=== PATIENT | male | born 1990 | race African-American/Black ===

== ENCOUNTER 2016-09-28 17:21 | Emergency (ER) | payer SELFPAY ==
[~2016-09-28] VITALS: Ht 182.9 cm; Wt 120.2 kg
[~2016-09-28 17:21] MED LIST: IBUP200T43 PO
[2016-09-28] MEDS ORDERED: IV NORMAL SALINE 1000ML BAG 1,000 ML IV SCH (18:33)
[2016-09-28] MEDS ORDERED: LIDO:MAALOX:DONNATAL 1:1:1 15 ML SINGLE DOSE SWSW ONE (18:45)
[2016-09-28] MEDS ORDERED: ONDANSETRON PF 4 MG/2 ML VIAL. IV ONE (18:45)
[2016-09-28] MEDS ORDERED: FAMOTIDINE 20 MG/2 ML VIAL IVP ONE (18:45)
[2016-09-28 19:00] VITALS: BP 116/80
[2016-09-28 19:02] LABS: BASO # 0.1 x10^3/uL (0.0-0.2); BASO % 1 % (0-3); EOS % 1 % (0-3); HEMATOCRIT 43.6 % (39.0-53.0); HEMOGLOBIN 14.4 g/dL (13.0-17.5); LYMPH # 2.4 x10^3/uL (1.0-4.8); LYMPH % 22 % (24-48); MEAN CORPUSCULAR HEMOGLOBIN 31 pg (25-35); MEAN CORPUSCULAR HGB CONC 33 g/dL (31-37); MEAN CORPUSCULAR VOLUME 94 fL (79-100); MONO % 9 % (0-9); NEUT % 67 % (31-73); PLATELET COUNT 183 x10^3/uL (140-400); RED BLOOD COUNT 4.66 x10^6/uL (4.30-5.70); RED CELL DISTRIBUTION WIDTH 13.1 % (11.5-14.5); WHITE BLOOD COUNT 11.3 x10^3/uL (4.0-11.0)
[2016-09-28 19:14] LABS: CREATININE 1.1 mg/dL (0.7-1.3); GFR 96.4; POTASSIUM 3.9 mmol/L (3.5-5.1)
[2016-09-28 19:22] LABS: ALBUMIN 3.5 g/dL (3.4-5.0); ALBUMIN/GLOBULIN RATIO 1.1 (1.0-1.7); TOTAL BILIRUBIN 0.3 mg/dL (0.2-1.0); TOTAL PROTEIN 6.6 g/dL (6.4-8.2)
[2016-09-28] MEDS ORDERED: HYDR-971 PO (19:58)
[2016-09-28] MEDS ORDERED: OMEP20TA PO (19:58)
--- NOTE | 2016-09-28 19:58 | PHYS DOC ---
Past Medical History Past Medical History: Anxiety Past Surgical History: No Surgical History Additional Information: 0.25 PPD Alcohol Use: Occasionally Drug Use: Marijuana Adult General Chief Complaint Chief Complaint: ALLERGIC REACTION HPI HPI Patient is a 26 year old male who presents with abdominal pain. Patient reports last week he was started on meds for dental pain: indomethacin, penicillin, and tramadol. Since yesterday he has been having "squeezing" epigastric pain that is accompanied by nausea. He also vomited once this morning. No clear mitigating factors. In addition, he says that he has only taken the tramadol a few times because it makes him weak and drowsy. Review of Systems Review of Systems Constitutional: Denies fever or chills HENT: Denies nasal congestion or sore throat. Dental pain controlled Respiratory: Denies cough or shortness of breath Cardiovascular: Denies chest pain GI: Epigastric abdominal pain, nausea, vomiting. Denies bloody stools/emesis or diarrhea : Denies dysuria or hematuria Musculoskeletal: Denies back pain or joint pain Integument: Denies rash or skin lesions Neurologic: Denies headache, focal weakness or sensory changes Current Medications Current Medications Current Medications Medications (Trade) Dose Ordered Sig/Noel Start Time Stop Time Status Last Admin Dose Admin Famotidine (Pepcid) 20 mg 1X ONCE 09/28/16 18:45 09/28/16 18:46 DC 09/28/16 18:49 20 MG Multi-Ingredient Mouthwash/Gargle 15 ml 15 ml 1X ONCE 09/28/16 18:45 09/28/16 18:46 DC 09/28/16 18:48 15 ML Ondansetron HCl (Zofran) 4 mg 1X ONCE 09/28/16 18:45 09/28/16 18:46 DC 09/28/16 18:48 4 MG Sodium Chloride (Iv Sodium Chloride 0.9% 1000ml Bag) 1,000 ml @ 1,000 mls/hr Q1H 09/28/16 18:33 09/28/16 19:32 DC 09/28/16 18:49 1,000 MLS/HR Allergies Allergies Allergies Coded Allergies Type Severity Reaction Last Updated Verified No Known Drug Allergies 02/24/16 No Physical Exam Physical Exam Constitutional: Well developed, well nourished, no acute distress, non-toxic appearance HENT: Normocephalic, atraumatic, bilateral external ears normal; tooth #1 eroded down to gumline Neck: Normal range of motion, no stridor Cardiovascular: Heart rate normal, regular rhythm, no murmur Lungs & Thorax: Bilateral breath sounds clear to auscultation Abdomen: Bowel sounds normal, soft, non-distended, epigastric TTP without guarding or rebound Skin: Warm, dry, no erythema, no rash Extremities: No obvious deformity, no edema Neurologic: Alert and oriented X 3, no gross deficits noted Current Patient Data Vital Signs Vital Signs Date Time Temp Pulse Resp B/P Pulse Ox O2 Delivery O2 Flow Rate FiO2 09/28/16 19:00 80 16 116/80 99 Room Air 09/28/16 17:31 99.5 99.5 Lab Values Laboratory Tests Test 09/28/16 18:55 White Blood Count 11.3x10^3/uL (4.0-11.0) H Red Blood Count 4.66x10^6/uL (4.30-5.70) Hemoglobin 14.4g/dL (13.0-17.5) Hematocrit 43.6% (39.0-53.0) Mean Corpuscular Volume 94fL (79-100) Mean Corpuscular Hemoglobin 31pg (25-35) Mean Corpuscular Hemoglobin Concent 33g/dL (31-37) Red Cell Distribution Width 13.1% (11.5-14.5) Platelet Count 183x10^3/uL (140-400) Neutrophils (%) (Auto) 67% (31-73) Lymphocytes (%) (Auto) 22% (24-48) L Monocytes (%) (Auto) 9% (0-9) Eosinophils (%) (Auto) 1% (0-3) Basophils (%) (Auto) 1% (0-3) Neutrophils # (Auto) 7.6x10^3uL (1.8-7.7) Lymphocytes # (Auto) 2.4x10^3/uL (1.0-4.8) Monocytes # (Auto) 1.0x10^3/uL (0.0-1.1) Eosinophils # (Auto) 0.2x10^3/uL (0.0-0.7) Basophils # (Auto) 0.1x10^3/uL (0.0-0.2) Sodium Level 143mmol/L (136-145) Potassium Level 3.9mmol/L (3.5-5.1) Chloride Level 105mmol/L (98-107) Carbon Dioxide Level 29mmol/L (21-32) Anion Gap 9 (6-14) Blood Urea Nitrogen 12mg/dL (8-26) Creatinine 1.1mg/dL (0.7-1.3) Estimated GFR (Cockcroft-Gault) 96.4 BUN/Creatinine Ratio 11 (6-20) Glucose Level 93mg/dL (70-99) Calcium Level 9.0mg/dL (8.5-10.1) Total Bilirubin 0.3mg/dL (0.2-1.0) Aspartate Amino Transferase (AST) 16U/L (15-37) Alanine Aminotransferase (ALT) 42U/L (16-63) Alkaline Phosphatase 79U/L (46-116) Total Protein 6.6g/dL (6.4-8.2) Albumin 3.5g/dL (3.4-5.0) Albumin/Globulin Ratio 1.1 (1.0-1.7) Lipase 108U/L (73-393) Laboratory Tests 09/28/16 18:55 Laboratory Tests 09/28/16 18:55 EKG EKG [] Radiology/Procedures Radiology/Procedures [] Course & Med Decision Making Course & Med Decision Making Pertinent Labs and Imaging studies reviewed. (See chart for details) Patient is 18-year-old male who presents with abdominal pain. Appears to be NSAID-induced gastritis from indomethacin use. Will check labs to evaluate. IV fluids, Pepcid, GI cocktail, nausea meds ordered for symptom relief. Blood work unremarkable. Discussed results with patient, who is feeling much better at this time. Will discharge home with prescription for omeprazole, alternate pain medication, instructions for follow-up, return precautions. Dragon Disclaimer Dragon Disclaimer This electronic medical record was generated, in whole or in part, using a voice recognition dictation system. Departure Departure Impression: Primary Impression: NSAID induced gastritis Disposition: HOME, SELF-CARE Condition: IMPROVED Referrals: NO PCP (PCP) Patient Instructions: Gastritis, Adult Additional Instructions: Thank you for allowing us to provide care today in the Emergency Department. Stop taking any NSAIDs for the near future. This includes indomethacin, aspirin , ibuprofen, and naproxen. It is ok to take acetaminophen (Tylenol). Take the provided medication as directed. Use caution when taking the pain medication as it can make you drowsy. Schedule a follow up appointment with your primary care doctor. Also keep your scheduled appointment with your dentist. Return promptly to the Emergency Department if you develop any new or concerning symptoms. Scripts Omeprazole 20 Mg Tablet.dr20 Mg PO DAILY #30 TAB Prov:PRISCILLA CHURCHILL MD 09/28/16 Hydrocodone/Apap 5-325 (Bertha 5-325 Tablet)1 Each Tablet1 Tab PO PRN Q6HRS PRN PAIN #20 TAB Prov:PRISCILLA CHURCHILL MD 09/28/16 PRISCILLA CHURCHILL MD Sep 28, 2016 19:58
== END 2016-09-28 20:16 | disposition home or self-care (01) ==
LOC: ER 17:21
DX: K29.60 Other gastritis without bleeding (principal); F12.10 Cannabis abuse, uncomplicated; F17.200 Nicotine dependence, unspecified, uncomplicated
CPT/HCPCS: 36415; 80053; 83690; 85027; 96361; 96374; 96375; 99284; J2405; J7030; S0028

== ENCOUNTER 2016-10-28 08:34 | Emergency (ER) | payer SELFPAY ==
[~2016-10-28] VITALS: Ht 182.9 cm; Wt 117.9 kg
[~2016-10-28 08:34] MED LIST changes: +HYDR-971 PO; +OMEP20TA PO
[2016-10-28] MEDS ORDERED: ALPRAZolam 0.5 MG TABLET PO ONE (09:00)
--- NOTE | 2016-10-28 09:23 | EKG ---
[facility] [address] [place] [address] Test Date: 2016-10-28 Test Time: 08:56:31 Pat Name: DALJIT MARTINEZ Department: Room: Gender: M Media Marketing Manager: : 1990 Requested By: MIKALA HONEYCUTT Order Number: [id number] Reading MD: Bel Arndt Measurements Intervals [place] Rate: 80 P: 0 OK: 158 QRS: 43 QRSD: 94 T: 18 QT: 338 QTc: 393 Interpretive Statements SINUS RHYTHM NORMAL EKG Electronically Signed On 10-31-2016 17:37:45 CDT by Bel Arndt
[2016-10-28 09:45] VITALS: BP 117/57
[2016-10-28] MEDS ORDERED: ALPR0.5T PO (09:50)
--- NOTE | 2016-10-28 09:50 | PHYS DOC ---
Past Medical History Past Medical History: Anxiety Past Surgical History: No Surgical History Alcohol Use: Occasionally Additional Information: Pt states, "I used to drink heavy everyday and then I got it down to just on weekends, and then I completely stopped two weeks ago." Drug Use: Marijuana Social History Narrative: Denies marijana use x 2 weeks Adult General Chief Complaint Chief Complaint: ANXIETY/PANIC ATTACK HPI HPI Patient is a 26 year old male with history of anxiety who presents today complaining of anxiety. Patient states he has had a lot of stress recently. He states he has a lot of bills which need to be pain but he doesn't have the money right now to pay them, he states most of his family members are depending on him. Patient states this situations has made him very anxious. Patient denies any chest pain or shortness of breath. He states he would like a note for work as well as some help for anxiety. Patient denies any suicidal or homicidal ideation. Patient denies any alcohol or drug abuse. He states he stopped using alcohol 2 weeks ago. He states he stopped smoking 2 weeks ago but smoked one cigarette today due to anxiety. Review of Systems Review of Systems Constitutional: Denies fever or chills [] Eyes: Denies change in visual acuity, redness, or eye pain [] HENT: Denies nasal congestion or sore throat [] Respiratory: Denies cough or shortness of breath [] Cardiovascular: No additional information not addressed in HPI [] GI: Denies abdominal pain, nausea, vomiting, bloody stools or diarrhea [] : Denies dysuria or hematuria [] Musculoskeletal: Denies back pain or joint pain [] Integument: Denies rash or skin lesions [] Neurologic: Denies headache, focal weakness or sensory changes [] Endocrine: Denies polyuria or polydipsia [] Psych: anxiety Current Medications Current Medications Current Medications Medications (Trade) Dose Ordered Sig/Noel Start Time Stop Time Status Last Admin Dose Admin Alprazolam (Xanax) 0.5 mg 1X ONCE 10/28/16 09:00 10/28/16 09:27 DC 10/28/16 09:18 0.5 MG Allergies Allergies Allergies Coded Allergies Type Severity Reaction Last Updated Verified No Known Drug Allergies 10/28/16 No Physical Exam Physical Exam Constitutional: Well developed, well nourished, no acute distress, non-toxic appearance. [] HENT: Normocephalic, atraumatic, bilateral external ears normal, oropharynx moist, no oral exudates, nose normal. [] Eyes: PERRLA, EOMI, conjunctiva normal, no discharge. [] Neck: Normal range of motion, no tenderness, supple, no stridor. [] Cardiovascular:Heart rate regular rhythm, no murmur [] Lungs & Thorax: Bilateral breath sounds clear to auscultation [] Abdomen: Bowel sounds normal, soft, no tenderness, no masses, no pulsatile masses. [] Skin: Warm, dry, no erythema, no rash. [] Back: No tenderness, no CVA tenderness. [] Extremities: No tenderness, no cyanosis, no clubbing, ROM intact, no edema. [] Neurologic: Alert and oriented X 3, normal motor function, normal sensory function, no focal deficits noted. [] Psychologic: Affect normal, judgement normal, mood normal. [] Current Patient Data Vital Signs Vital Signs Date Time Temp Pulse Resp B/P (MAP) Pulse Ox O2 Delivery O2 Flow Rate FiO2 10/28/16 08:46 98.6 90 20 137/66 (89) 100 Room Air 98.6 EKG EKG [] Radiology/Procedures Radiology/Procedures [] Course & Med Decision Making Course & Med Decision Making Pertinent Labs and Imaging studies reviewed. (See chart for details) This is a patient with history of anxiety who presents today with an anxiety attack. He is not suicidal homicidal or homicidal. He is requesting something to help him with anxiety as well as a note for work. He was given Xanax in the ED. He is in no distress. His vitals are stable. Advised against smoking addiction 08:[address] Webb sinus rhythm, HR 80 QRS interval 94 no STEMI We recommended following up with [facility]. Gave him a prescription for Xanax . Dragon Disclaimer Dragon Disclaimer This electronic medical record was generated, in whole or in part, using a voice recognition dictation system. Departure Departure Impression: Primary Impression: Anxiety Disposition: HOME, SELF-CARE Condition: STABLE Referrals: NO PCP (PCP) Follow up with [facility] [phone] and a primarycare doctor Patient Instructions: Anxiety and Panic Attacks Additional Instructions: You were seen for anxiety. We highly recommend you establish care with a primary care doctor as well as [facility]. Come back to the Ed if symptoms worsen Scripts Alprazolam (XANAX) 0.5 Mg Tablet 1 TAB PO TID, #12 TAB Prov: MIKALA HONEYCUTT APRN 10/28/16 MIKALA HONEYCUTT APRN October 28, 2016 09:50
== END 2016-10-28 10:10 | disposition home or self-care (01) ==
LOC: ER 08:34
DX: F41.9 Anxiety disorder, unspecified (principal); F17.200 Nicotine dependence, unspecified, uncomplicated; F12.10 Cannabis abuse, uncomplicated
CPT/HCPCS: 93005; 99283-25

== ENCOUNTER 2017-12-16 18:52 | Emergency (ER) | payer SELFPAY | END 2017-12-16 20:30 | disposition home or self-care (01) | LOC: ER 18:52 | DX: F41.9 Anxiety disorder, unspecified (principal); F32.9 Major depressive disorder, single episode, unspecified | CPT/HCPCS: 93005; 99283; 99284 ==

== ENCOUNTER 2019-04-01 14:58 | Emergency (ER) | payer OTHER ==
[~2019-04-01] VITALS: Ht 180.3 cm; Wt 129.3 kg
[~2019-04-01 14:58] MED LIST changes: +ALPR0.5T PO; +HYDR-3164 PO; -HYDR-971 PO; -IBUP200T43 PO; +IBUP200T44 PO; -OMEP20TA PO; +OMEP20TA8 PO
[2019-04-01 15:25] VITALS: BP 177/85
[2019-04-01] MEDS ORDERED: HYDROcodone/APAP 5/325MG 1 TAB TABLET PO ONE (15:45)
--- NOTE | 2019-04-01 15:53 | PHYS DOC ---
Past Medical History Past Medical History: Anxiety Past Surgical History: No Surgical History Alcohol Use: Occasionally Drug Use: Marijuana Adult General Chief Complaint Chief Complaint: SORE THROAT HPI HPI Patient is a 29 year old smoker male patient who presents with complaining of sore throat and sinus infection. Patient states he had facial and sinus pain thought to 3 days ago with nonproductive cough and yesterday had jaw and dental pain and today had sore throat. Patient states he had fever for the first 2 days but doesn't know what was his temperature that was checked by his . Patient rated his pain 8/10 and denies sick contact, shortness of breath, chest pain, abdominal pain, nausea and vomiting, diarrhea and constipation, urinary symptom. Review of Systems Review of Systems Constitutional: Reports fever Eyes: Denies change in visual acuity, redness, or eye pain [] HENT: Reports nasal congestion and sore throat Respiratory: Denies shortness of breath, reports cough [] Cardiovascular: No additional information not addressed in HPI [] GI: Denies abdominal pain, nausea, vomiting, bloody stools or diarrhea [] : Denies dysuria or hematuria [] Musculoskeletal: Denies back pain or joint pain [] Integument: Denies rash or skin lesions [] Neurologic: Denies headache, focal weakness or sensory changes [] Endocrine: Denies polyuria or polydipsia [] All other systems were reviewed and found to be within normal limits, except as documented in this note. Current Medications Current Medications Current Medications Medications (Trade) Dose Ordered Sig/Noel Start Time Stop Time Status Last Admin Dose Admin Acetaminophen/ Hydrocodone Bitart (Lortab 5/325) 1 tab 1X ONCE 04/01/19 15:45 04/01/19 15:46 DC 04/01/19 15:46 1 TAB Allergies Allergies Allergies Coded Allergies Type Severity Reaction Last Updated Verified No Known Drug Allergies 10/28/16 No Physical Exam Physical Exam Constitutional: Well developed, well nourished, mild distress, non-toxic appearance, afebrile. [] HENT: Normocephalic, atraumatic nasal congestion, moist oral mucosa, no dental injury or tenderness, bilateral tonsils enlarged with exudate, bilateral maxillary sinus tenderness. Eyes: PERRLA, EOMI, conjunctiva normal, no discharge. [] Neck: Normal range of motion, no tenderness, supple, no stridor. [] Cardiovascular:Heart rate regular rhythm, no murmur [] Lungs & Thorax: Bilateral breath sounds clear to auscultation [] Extremities: No tenderness, no cyanosis, no clubbing, ROM intact, no edema. [] Neurologic: Alert and oriented X 3, no focal deficits noted. [] Psychologic: Affect normal, judgement normal, mood normal. [] Current Patient Data Vital Signs Vital Signs Date Time Temp Pulse Resp B/P (MAP) Pulse Ox O2 Delivery O2 Flow Rate FiO2 04/01/19 15:46 14 98 Room Air 04/01/19 15:25 99.1 97 177/85 (115) 99.1 EKG EKG [] Radiology/Procedures Radiology/Procedures [] Course & Med Decision Making Course & Med Decision Making Pertinent Labs reviewed. (See chart for details) I've spoken with the patient and/or caregivers. I've explained the patient's condition, diagnosis and treatment plan based on information available to me at this time. I've answered the patient's and/or caregivers questions and addressed any concerns. The patient and/or caregivers have a good understanding the patient's diagnosis, condition and treatment plan as can be expected at this point. Vital signs have been stabilized. The patient's condition is stable for discharge from the emergency department. The patient will pursue further outpatient evaluation with her primary care provider or other designated consulting physician as outlined in the discharge i nstructions. Patient and/or caregivers are agreeable to this plan of care and follow-up instructions have been explained in detail. The patient and/or caregivers have received these instructions in written format and expressed understanding of these discharge instructions. The patient and her caregivers are aware that if any significant change in condition or worsening of symptoms should prompt him to immediately return to this of the closest emergency department. If an emergent department is not readily available I would encourage him to call 911. Esperanza Disclaimer Dragon Disclaimer This electronic medical record was generated, in whole or in part, using a voice recognition dictation system. Departure Departure Impression: Primary Impression: URI (upper respiratory infection) Additional Impression: Acute sinusitis Disposition: HOME, SELF-CARE (at 1624) Condition: IMPROVED Referrals: NO PCP (PCP) Patient Instructions: Sinusitis, Upper Respiratory Infection, Adult Additional Instructions: Drink plenty of liquids Follow-up with your primary care physician in 3-5 days Return to ER if not getting better Scripts Benzonatate (TESSALON PERLE) 100 Mg Capsule 1 CAP PO TID for cough, #21 CAP Prov: MARIA ALEJANDRA LOPEZ MD 04/01/19 Hydrocodone/Apap 5-325 (NORCO 5-325 TABLET) 1 Each Tablet 1 TAB PO PRN Q6HRS PRN for PAIN, #10 TAB 0 Refills Prov: MARIA ALEJANDRA LOPEZ MD 04/01/19 Amoxicillin/Potassium Clav (AUGMENTIN 875-125 TABLET) 1 Each Tablet 1 TAB PO Q12HR, #20 TAB Prov: MARIA ALEJANDRA LOPEZ MD 04/01/19 Oxymetazoline Hcl (AFRIN) 30 Ml [place] 2 SPR NS QID for nasal congestion, #1 SPRAY Prov: MARIA ALEJANDRA LOPEZ MD 04/01/19 Problem Qualifiers Primary Impression: URI (upper respiratory infection) URI type: unspecified URI Qualified Codes: J06.9 - Acute upper respiratory infection, unspecified Additional Impression: Acute sinusitis Sinusitis location: maxillary Recurrence: not specified as recurrent Qualified Codes: J01.00 - Acute maxillary sinusitis, unspecified MARIA ALEJANDRA LOPEZ MD Apr 01, 2019 15:53
[2019-04-01] MEDS ORDERED: OXYM30SP NS (16:28)
[2019-04-01] MEDS ORDERED: AMOX1TAB61 PO (16:28)
[2019-04-01] MEDS ORDERED: BENZ100C PO (16:28)
[2019-04-01] MEDS ORDERED: HYDR-3164 PO (16:28)
== END 2019-04-01 16:45 | disposition home or self-care (01) ==
LOC: ER 14:58
DX: J01.00 Acute maxillary sinusitis, unspecified (principal); J06.9 Acute upper respiratory infection, unspecified; F41.9 Anxiety disorder, unspecified; F17.200 Nicotine dependence, unspecified, uncomplicated
CPT/HCPCS: 87070; 87880; 99284

== ENCOUNTER 2020-01-03 21:19 | Emergency (ER) | payer SELFPAY ==
[~2020-01-03] VITALS: Ht 182.9 cm; Wt 120.4 kg
[~2020-01-03 21:19] MED LIST changes: +AMOX1TAB61 PO; +BENZ100C PO; +OXYM30SP25 NS
[2020-01-04] MEDS ORDERED: ONDANSETRON PF 4 MG/2 ML VIAL. IVP ONE
[2020-01-04] MEDS ORDERED: IV NORMAL SALINE 1000ML BAG 1,000 ML IV ONE (00:15)
[2020-01-04 00:26] LABS: BASO # 0.1 x10^3/uL (0.0-0.2); BASO % 1 % (0-3); EOS # 0.2 x10^3/uL (0.0-0.7); EOS % 2 % (0-3); HEMATOCRIT 40.5 % (39.0-53.0); LYMPH # 3.9 x10^3/uL (1.0-4.8); LYMPH % 33 % (24-48); MEAN CORPUSCULAR HEMOGLOBIN 32 pg (25-35); MEAN CORPUSCULAR HGB CONC 35 g/dL (31-37); MEAN CORPUSCULAR VOLUME 93 fL (79-100); MONO # 0.8 x10^3/uL (0.0-1.1); MONO % 7 % (0-9); NEUT # 6.7 x10^3/uL (1.8-7.7); NEUT % 57 % (31-73); PLATELET COUNT 261 x10^3/uL (140-400); RED BLOOD COUNT 4.37 x10^6/uL (4.30-5.70); RED CELL DISTRIBUTION WIDTH 13.2 % (11.5-14.5); WHITE BLOOD COUNT 11.8 x10^3/uL (4.0-11.0)
[2020-01-04 00:37] LABS: CALCIUM 8.5 mg/dL (8.5-10.1); GFR 105.5
[2020-01-04 00:45] LABS: ALBUMIN 3.5 g/dL (3.4-5.0); ALBUMIN/GLOBULIN RATIO 1.1 (1.0-1.7); TOTAL BILIRUBIN 0.3 mg/dL (0.2-1.0); TOTAL PROTEIN 6.6 g/dL (6.4-8.2)
--- NOTE | 2020-01-04 01:26 | PHYS DOC ---
Past Medical History Past Medical History: Anxiety Past Surgical History: No Surgical History Smoking Status: Current Every Day Smoker Alcohol Use: Occasionally Drug Use: Marijuana General Adult EDM: Chief Complaint: GI PROBLEM HPI: HPI: 29-year-old male presents with a chief complaint of left upper quadrant abdominal pain associated with nausea vomiting and diarrhea. Patient states Review of Systems: Review of Systems: Constitutional: Denies fever or chills. [] Eyes: Denies change in visual acuity. [] HENT: Denies nasal congestion or sore throat. [] Respiratory: Denies cough or shortness of breath. [] Cardiovascular: Denies chest pain or edema. [] GI: Denies abdominal pain, nausea, vomiting, bloody stools or diarrhea. [] : Denies dysuria. [] Musculoskeletal: Denies back pain or joint pain. [] Integument: Denies rash. [] Neurologic: Denies headache, focal weakness or sensory changes. [] Endocrine: Denies polyuria or polydipsia. [] Lymphatic: Denies swollen glands. [] Psychiatric: Denies depression or anxiety. [] Heart Score: Risk Factors: Risk Factors: DM, Current or recent (<one month) smoker, HTN, HLP, family h istory of CAD, obesity. Risk Scores: Score 0 - 3: 2.5% MACE over next 6 weeks - Discharge Home Score 4 - 6: 20.3% MACE over next 6 weeks - Admit for Clinical Observation Score 7 - 10: 72.7% MACE over next 6 weeks - Early Invasive Strategies Current Medications: Current Medications Medications (Trade) Dose Ordered Sig/Noel Start Time Stop Time Status Last Admin Dose Admin Ondansetron HCl (Zofran) 4 mg 1X ONCE 01/04/20 00:00 01/04/20 00:01 DC 01/04/20 00:12 4 MG Sodium Chloride 1,000 ml @ 1,000 mls/hr 1X ONCE 01/04/20 00:15 01/04/20 01:14 DC 01/04/20 00:13 1,000 MLS/HR Allergies: Allergies: Allergies Coded Allergies Type Severity Reaction Last Updated Verified No Known Drug Allergies 10/28/16 No Physical Exam: PE: Constitutional: Well developed, well nourished, no acute distress, non-toxic appearance. [] HENT: Normocephalic, atraumatic, bilateral external ears normal, oropharynx moist, no oral exudates, nose normal. [] Eyes: PERRLA, EOMI, conjunctiva normal, no discharge. [] Neck: Normal range of motion, no tenderness, supple, no stridor. [] Cardiovascular:Heart rate regular rhythm, no murmur [] Lungs & Thorax: Bilateral breath sounds clear to auscultation [] Abdomen: Patient's abdomen is soft tenderness with location primarily in the le ft upper quadrant. Patient has no pain to palpation right upper quadrant and right lower quadrant Skin: Warm, dry, no erythema, no rash. [] Back: No tenderness, no CVA tenderness. [] Extremities: No tenderness, no cyanosis, no clubbing, ROM intact, no edema. [] Neurologic: Alert and oriented X 3, normal motor function, normal sensory function, no focal deficits noted. [] Psychologic: Affect normal, judgement normal, mood normal. [] Current Patient Data: Labs: Laboratory Tests Test 01/04/20 00:09 White Blood Count 11.8 x10^3/uL (4.0-11.0) H Red Blood Count 4.37 x10^6/uL (4.30-5.70) Hemoglobin 14.0 g/dL (13.0-17.5) Hematocrit 40.5 % (39.0-53.0) Mean Corpuscular Volume 93 fL (79-100) Mean Corpuscular Hemoglobin 32 pg (25-35) Mean Corpuscular Hemoglobin Concent 35 g/dL (31-37) Red Cell Distribution Width 13.2 % (11.5-14.5) Platelet Count 261 x10^3/uL (140-400) Neutrophils (%) (Auto) 57 % (31-73) Lymphocytes (%) (Auto) 33 % (24-48) Monocytes (%) (Auto) 7 % (0-9) Eosinophils (%) (Auto) 2 % (0-3) Basophils (%) (Auto) 1 % (0-3) Neutrophils # (Auto) 6.7 x10^3/uL (1.8-7.7) Lymphocytes # (Auto) 3.9 x10^3/uL (1.0-4.8) Monocytes # (Auto) 0.8 x10^3/uL (0.0-1.1) Eosinophils # (Auto) 0.2 x10^3/uL (0.0-0.7) Basophils # (Auto) 0.1 x10^3/uL (0.0-0.2) Sodium Level 140 mmol/L (136-145) Potassium Level 4.0 mmol/L (3.5-5.1) Chloride Level 106 mmol/L (98-107) Carbon Dioxide Level 26 mmol/L (21-32) Anion Gap 8 (6-14) Blood Urea Nitrogen 9 mg/dL (8-26) Creatinine 1.0 mg/dL (0.7-1.3) Estimated GFR (Cockcroft-Gault) 105.5 BUN/Creatinine Ratio 9 (6-20) Glucose Level 94 mg/dL (70-99) Calcium Level 8.5 mg/dL (8.5-10.1) Total Bilirubin 0.3 mg/dL (0.2-1.0) Aspartate Amino Transferase (AST) 16 U/L (15-37) Alanine Aminotransferase (ALT) 35 U/L (16-63) Alkaline Phosphatase 94 U/L (46-116) Total Protein 6.6 g/dL (6.4-8.2) Albumin 3.5 g/dL (3.4-5.0) Albumin/Globulin Ratio 1.1 (1.0-1.7) Lipase 101 U/L (73-393) Laboratory Tests 01/04/20 00:09 Laboratory Tests 01/04/20 00:09 Vital Signs: Vital Signs Date Time Temp Pulse Resp B/P (MAP) Pulse Ox O2 Delivery O2 Flow Rate FiO2 01/03/20 22:08 98.5 72 18 116/59 (78) 98 Room Air 98.5 EKG: EKG: [] Radiology/Procedures: Radiology/Procedures: [] Course & Med Decision Making: Course & Med Decision Making Pertinent Labs and Imaging studies reviewed. (See chart for details) [] Was evaluated for chief complaint. Work-up consisted of laboratory analysis. Results reviewed and discussed with patient suspect viral etiology. Patient treated with Toradol and Zofran. Patient tolerated p.o. fluids. Patient will be discharged home with Zofran. Esperanza Disclaimer: Esperanza Disclaimer: This electronic medical record was generated, in whole or in part, using a voice recognition dictation system. Departure Departure Impression: Primary Impression: Gastroenteritis Condition: STABLE Referrals: NO PCP (PCP) Patient Instructions: Viral Gastroenteritis Scripts Ondansetron Hcl (ZOFRAN) 4 Mg Tablet 1 TAB PO Q6HRS, #20 TAB Prov: MICHEAL SALAZAR DO 01/04/20 Justicifation of Admission Dx: Justifications for Admission: Justification of Admission Dx: N/A MICHEAL SALAZAR DO Jan 04, 2020 01:26
[2020-01-04] MEDS ORDERED: ONDA4TAB7 PO (02:12)
[2020-01-04 02:34] VITALS: BP 120/75
== END 2020-01-04 02:38 | disposition home or self-care (01) ==
LOC: ER 21:19
DX: K52.9 Noninfective gastroenteritis and colitis, unspecified (principal); F17.200 Nicotine dependence, unspecified, uncomplicated
CPT/HCPCS: 36415; 80053; 83690; 85025; 96361; 96374; 99285; J2405; J7030

== ENCOUNTER 2020-01-09 12:24 | Emergency (ER) | payer SELFPAY ==
[~2020-01-09] VITALS: Ht 182.9 cm; Wt 122.0 kg
[~2020-01-09 12:24] MED LIST changes: +ONDA4TAB7 PO
[2020-01-09] MEDS ORDERED: IV NORMAL SALINE 1000ML BAG 1,000 ML IV SCH (12:47)
--- NOTE | 2020-01-09 12:47 | PHYS DOC ---
Past Medical History Past Medical History: Anxiety Past Surgical History: No Surgical History Smoking Status: Current Every Day Smoker Alcohol Use: Occasionally Drug Use: Marijuana General Adult EDM: Chief Complaint: ABDOMINAL PAIN HPI: HPI: Patient is a 29 year old [male] who presents with [1 week history of abdominal pain. Patient recently had diarrhea which is gotten better but now has nausea vomiting. Patient reports any fever a week ago at job but has not had any fever since. Patient says his has had similar symptoms.] Review of Systems: Review of Systems: Constitutional: Fever 6 days ago none since Eyes: Denies change in visual acuity. [] HENT: Denies nasal congestion or sore throat. [] Respiratory: Denies cough or shortness of breath. [] Cardiovascular: Denies chest pain or edema. [] GI: Complaint of abdominal pain, nausea vomiting and some diarrhea but that has improved] : Denies dysuria. [] Musculoskeletal: Denies back pain or joint pain. [] Integument: Denies rash. [] Neurologic: Denies headache, focal weakness or sensory changes. [] Endocrine: Denies polyuria or polydipsia. [] Lymphatic: Denies swollen glands. [] Psychiatric: Denies depression or anxiety. [] Heart Score: Risk Factors: Risk Factors: DM, Current or recent (<one month) smoker, HTN, HLP, family history of CAD, obesity. Risk Scores: Score 0 - 3: 2.5% MACE over next 6 weeks - Discharge Home Score 4 - 6: 20.3% MACE over next 6 weeks - Admit for Clinical Observation Score 7 - 10: 72.7% MACE over next 6 weeks - Early Invasive Strategies Allergies: Allergies: Allergies Coded Allergies Type Severity Reaction Last Updated Verified No Known Drug Allergies 10/28/16 No Physical Exam: PE: Constitutional: Well developed, well nourished, no acute distress, non-toxic appearance. [] HENT: Normocephalic, atraumatic, bilateral external ears normal, oropharynx moist, no oral exudates, nose normal. [] Eyes: PERRLA, EOMI, conjunctiva normal, no discharge. [] Neck: Normal range of motion, no tenderness, supple, no stridor. [] Cardiovascular:Heart rate regular rhythm, no murmur [] Lungs & Thorax: Bilateral breath sounds clear to auscultation [] Abdomen: Bowel sounds normal, soft, mild diffuse tenderness, no guarding no rebound Skin: Warm, dry, no erythema, no rash. [] Back: No tenderness, no CVA tenderness. [] Extremities: No tenderness, no cyanosis, no clubbing, ROM intact, no edema. [] Neurologic: Alert and oriented X 3, normal motor function, normal sensory function, no focal deficits noted. [] Psychologic: Affect normal, judgement normal, mood normal. [] EKG: EKG: [] Radiology/Procedures: Radiology/Procedures: [] Course & Med Decision Making: Course & Med Decision Making Pertinent Labs and Imaging studies reviewed. (See chart for details) [1:45 PM reassessment patient feels better abdomen soft and nontender Work-up reassuring. Abdomen is benign. Clinically stable for discharge and outpatient follow-up. Dragon Disclaimer: Dragon Disclaimer: This electronic medical record was generated, in whole or in part, using a voice recognition dictation system. Departure Departure Impression: Primary Impression: Vomiting Disposition: 01 HOME, SELF-CARE Condition: STABLE Referrals: NO PCP (PCP) FOLLOW UP WITH PCP FROM SHEET PROVIDED IN 2-3 DAYS Additional Instructions: EMERGENCY DEPARTMENT GENERAL DISCHARGE INSTRUCTIONS Thank you for coming to [facility] Emergency Department (ED) today and trusting us with you care. We trust that you had a positivie experience in our Emergency Department. If you wish to speak to the department management, you may call the sirector at [phone]. YOUR FOLLOW UP INSTRUCTIONS ARE FOLLOWS: 1. Do you have a private Doctor? If you do not have a private doctir, please ask for a resource list of physicians or clinics that may be able to assist you with follow up care. 2. The Emergency Physicain has interpreted your x-rays. The X-Ray specialist will also review them. If there is a change in the findingd, you will be notified in 48 hours when at all possible. 3. A lab test or culture has been done, your results will be reviewed and you will be notified if you need a change in treatment. ADDITIONAL INSTRUCTIONS AND INFORMATION: 1. Your care today has been supervised by a physician who is specially trained in emergency care. Many problems require more than one evaluation for a complete diagnosis and treatment. We recommend that you schedule your follow up appointment as recommended to ensure complete treatment of you illness or injury. If you are unable to obtain follow up care and continue to have a problem, or if your consition worsens, we recommend that you return to the ED. 2. We are not able to safelymdetermine your condition over the phone nor are we able to give sound medical advice over the phone. For these safety reasons, if you call for medical advice we will ask you to come to the ED for further evaluation. 3. If you have any questions regarding these discharge instructions please call the ED at [phone]. SAFETY INFORMATION: In the interest of safety, wellness, and injury prevention; we encourage you to wear your sealbelt, if you smoke; quite smoking, and we encourage family to use a protective helmet for bicycling and other sporting events that present an increased risk for head injusry. IF YOUR SYMPTOMS WORSEN OR NEW SYMPTOMS DEVELOP, OR YOU HAVE CONCERNS ABOUT YOUR CONDITION; OR IF YOUR CONDITION WORSENS WHILE YOU ARE WAITING FOR YOUR FOLLOW UP APPOINTMENT; EITHER CONTACT YOUR PRIMARY CARE DOCTOR, THE PHYSICIAN WHOSE NAME AND NUMBER YOU WERE GIVEN, OR RETURN TO THE ED IMMEDIATELY. [address] [address] Scripts Hyoscyamine Sulfate (LEVSIN) 0.125 Mg Tablet 1 TAB PO TID PRN for PAIN for 30 Days, #30 TAB 0 Refills Prov: ERICKSON COLE MD 01/09/20 Ondansetron Hcl (ZOFRAN) 4 Mg Tablet 1 TAB PO Q6HRS PRN for NAUSEA/VOMITING, #20 TAB Prov: ERICKSON COLE MD 01/09/20 Justicifation of Admission Dx: Justifications for Admission: Justification of Admission Dx: N/A ERICKSON COLE MD Jan 09, 2020 12:47
[2020-01-09 12:57] LABS: BASO % 1 % (0-3); EOS # 0.1 x10^3/uL (0.0-0.7); EOS % 1 % (0-3); HEMATOCRIT 44.6 % (39.0-53.0); HEMOGLOBIN 15.6 g/dL (13.0-17.5); LYMPH # 2.1 x10^3/uL (1.0-4.8); LYMPH % 27 % (24-48); MEAN CORPUSCULAR HEMOGLOBIN 32 pg (25-35); MEAN CORPUSCULAR HGB CONC 35 g/dL (31-37); MEAN CORPUSCULAR VOLUME 91 fL (79-100); MONO % 13 % (0-9); NEUT # 4.6 x10^3/uL (1.8-7.7); NEUT % 58 % (31-73); PLATELET COUNT 259 x10^3/uL (140-400); RED BLOOD COUNT 4.89 x10^6/uL (4.30-5.70); RED CELL DISTRIBUTION WIDTH 13.3 % (11.5-14.5); WHITE BLOOD COUNT 7.8 x10^3/uL (4.0-11.0)
[2020-01-09] MEDS ORDERED: ONDANSETRON PF 4 MG/2 ML VIAL. IVP ONE (13:00)
[2020-01-09 13:09] LABS: CALCIUM 8.7 mg/dL (8.5-10.1); CREATININE 1.1 mg/dL (0.7-1.3); GFR 94.5; POTASSIUM 3.9 mmol/L (3.5-5.1)
[2020-01-09 13:15] LABS: ALBUMIN 3.9 g/dL (3.4-5.0); ALBUMIN/GLOBULIN RATIO 0.9 (1.0-1.7); TOTAL BILIRUBIN 0.4 mg/dL (0.2-1.0); TOTAL PROTEIN 8.2 g/dL (6.4-8.2)
--- NOTE | 2020-01-09 13:24 | RAD ---
Examination: ACUTE ABDOMEN SERIES History: Reason: abd pain / Spl. Instructions: / History: Comparison/Correlation: None Findings: Frontal view of the chest, frontal upright view of the abdomen, and supine view of the abdomen were obtained. Heart size and pulmonary vasculature are normal. No infiltrate, pleural effusion, or pneumothorax. Bowel gas pattern is unremarkable. Few fluid levels are present within nondistended bowel. No suspicious abdominal calcifications. Sclerotic appearance of the sacroiliac joints. Bony structures are unremarkable. Impression: No infiltrate. No obstruction. Fluid levels within nondistended bowel. Correlate for possibility of enteritis. Electronically signed by: Kalia Frank MD (01/09/2020 1:21 PM) [id number]
[2020-01-09] MEDS ORDERED: HYOS0.1264 PO (14:08)
[2020-01-09] MEDS ORDERED: ONDA4TAB7 PO (14:08)
[2020-01-09 14:15] VITALS: BP 135/81
== END 2020-01-09 14:40 | disposition home or self-care (01) ==
LOC: ER 12:24
DX: R11.2 Nausea with vomiting, unspecified (principal); R19.7 Diarrhea, unspecified; R10.9 Unspecified abdominal pain; F41.9 Anxiety disorder, unspecified; F17.200 Nicotine dependence, unspecified, uncomplicated; F12.90 Cannabis use, unspecified, uncomplicated
CPT/HCPCS: 36415; 74022; 80053; 83690; 85025; 96361; 96374; 99284; J2405; J7030

== ENCOUNTER 2020-05-04 21:52 | Emergency (ER) | payer OTHER ==
[~2020-05-04] VITALS: Ht 180.3 cm; Wt 128.2 kg
[~2020-05-04 21:52] MED LIST changes: +HYOS0.1264 PO
[2020-05-04 22:46] VITALS: BP 140/75
--- NOTE | 2020-05-04 22:50 | PHYS DOC ---
Past Medical History Past Medical History: Anxiety Past Surgical History: No Surgical History Smoking Status: Current Every Day Smoker Alcohol Use: Occasionally Drug Use: Marijuana General Adult EDM: Chief Complaint: SHOULDER INJURY HPI: HPI: Patient is a 30 year old male presents with several months of left shoulder pain. Patient says he may pulled a muscle while lifting. Over the last 2 weeks is got more intense and pain is worse when he does a push-up motion. Pain is located on the left lateral shoulder does not really radiate but he has some tingling in his fingertips. Patient denies any focal weakness. Patient denies any URI symptoms or shortness of breath. No known exposure to COVID-19. Pain is described as a discomfort moderate in severity Review of Systems: Review of Systems: Constitutional: Denies fever or chills. [] Eyes: Denies change in visual acuity. [] HENT: Denies nasal congestion or sore throat. [] Respiratory: Denies cough or shortness of breath. [] Cardiovascular: Denies chest pain or edema. [] GI: Denies abdominal pain, nausea, vomiting, bloody stools or diarrhea. [] : Denies dysuria. [] Musculoskeletal: Denies back pain but has some left shoulder pain Integument: Denies rash. [] Neurologic: Denies headache, focal weakness or sensory changes. [] Endocrine: Denies polyuria or polydipsia. [] Lymphatic: Denies swollen glands. [] Psychiatric: Denies depression or anxiety. [] Heart Score: Risk Factors: Risk Factors: DM, Current or recent (<one month) smoker, HTN, HLP, family history of CAD, obesity. Risk Scores: Score 0 - 3: 2.5% MACE over next 6 weeks - Discharge Home Score 4 - 6: 20.3% MACE over next 6 weeks - Admit for Clinical Observation Score 7 - 10: 72.7% MACE over next 6 weeks - Early Invasive Strategies Allergies: Allergies: Allergies Coded Allergies Type Severity Reaction Last Updated Verified No Known Drug Allergies 10/28/16 No Physical Exam: PE: Constitutional: Well developed, well nourished, no acute distress, non-toxic appearance. [] HENT: Normocephalic, atraumatic, bilateral external ears normal, no trismus nose normal. [] Eyes: PERRLA, EOMI, conjunctiva normal, no discharge. [] Neck: Normal range of motion, no tenderness, supple, no stridor. [] Cardiovascular:Heart rate regular rhythm, peripheral pulses intact cap refill is brisk Lungs & Thorax: Bilateral breath sounds clear, no respiratory distress Abdomen: soft, no tenderness, no masses, no pulsatile masses. [] Skin: Warm, dry, no erythema, no rash. [] Back: No tenderness, no CVA tenderness. [] Extremities: Tenderness to the left lateral shoulder. Mild limited range of motion due to pain. Mild swelling to the left deltoid area, neurovascular intact distally. Neurologic: Alert and oriented X 3, normal motor function, normal sensory function, no focal deficits noted. [] Psychologic: Affect normal, judgement normal, mood normal. [] EKG: EKG: [] Radiology/Procedures: Radiology/Procedures: [][facility] [address] [place] [address] IMAGING REPORT Signed PATIENT: DALJIT MARTINEZ ACCOUNT: [id number] : 1990 LOCATION: ER AGE: 30 SEX: M EXAM STATUS: DEP ER ORD. PHYSICIAN: MIKALA HONEYCUTT APRN REASON: pain PROCEDURE: SHOULDER 2+V LEFT Study: CR SHOULDER 2+V LEFT Indication: Pain. Comparison: None. Findings: No acute fracture. Alignment is anatomic. No significant degenerative change. The visualized thoracic structures are unremarkable. Impression: No acute osseous abnormality. Electronically signed by: DIANA MANUEL MD (05/05/2020 12:52 AM) [id number] DICTATED and SIGNED BY: DIANA MANUEL MD DATE: 05/05/20 0052 Course & Med Decision Making: Course & Med Decision Making 30-year-old male presents with left shoulder pain. Patient has pain with range of motion, x-rays negative. Pain is mostly on the deltoid area. I am concerned the patient may have bursitis. Patient given a sling and instructed on range of motion exercises and follow-up with orthopedist. Patient given pain meds and anti-inflammatories as well. pertinent Labs and Imaging studies reviewed. (See chart for details) [] Dragon Disclaimer: Dragon Disclaimer: This electronic medical record was generated, in whole or in part, using a voice recognition dictation system. Departure Departure Impression: Primary Impression: Left shoulder pain Additional Impression: Bursitis of left shoulder Disposition: 01 DC HOME SELF CARE/HOMELESS Condition: STABLE Referrals: NO PCP (PCP) YARITZA HARGROVE MD 2-3 days Patient Instructions: Arm Sling Use-Brief, Bursitis, Shoulder Sprain Additional Instructions: EMERGENCY DEPARTMENT GENERAL DISCHARGE INSTRUCTIONS THANK YOU for coming to [facility] Emergency Department (ED) today and trusting us with your care. We trust that you had a positive experience in our Emergency Department. If you wish to speak to the department Management you can contact the chief librarian extension department at . YOUR FOLLOW UP INSTRUCTIONS ARE FOLLOWS: Do you have a private doctor? If you do not have a private doctor, please ask for a resource list of physicians or clinics that may be able to assist you with follow up care. The Emergency Physician has interpreted your x-rays. The X-ray specialist will also review them. If there is a change in the findings you will be notified in 48 hours when at all possible. A lab test or lab culture may have been done, your results will be reviewed and you will be notified if you need a change in treatment. ADDITIONAL INSTRUCTIONS AND INFORMATION Your care today has been supervised by a physician who is specially trained in emergency care. Many problems require more than one evaluation for a complete diagnosis and treatment. We recommend that you schedule your follow up appointment as recommended to ensure complete treatment of your illness or injury. If you are unable to obtain follow up care and continue to have a problem, or if your condition worsens we recommend that you return to the ED. We are not able to safely determine your condition over the phone nor are we able to give sound medical advice over the phone. For these safety reasons, if you call for medical advice we will ask you to come to the ED for further evaluation If you have any questions regarding these discharge instructions please call the ED at . SAFETY INFORMATION In the interest of safety, wellness, and injury prevention; we encourage you to wear your seatbelt, if you smoke; quit smoking, and we encourage your family to use protective helmet for bicycling and other sporting events that present an increased risk for head injury. IF YOUR SYMPTOMS WORSEN OR NEW SYMPTOMS DEVELOP, OR YOU HAVE CONCERNS ABOUT YOUR CONDITION; OR IF YOUR CONDITION WORSENS WHILE YOU ARE WAITING FOR YOUR FOLLOW UP APPOINTMENT; EITHER CONTACT YOUR PRIMARY CARE DOCTOR, THE PHYSICIAN WHOSE NAME AND NUMBER YOU WERE GIVEN, OR RETURN TO THE ED IMMEDIATELY. Scripts Ibuprofen (IBUPROFEN) 600 Mg Tablet 600 MG PO PRN Q6HRS PRN for INFLAMMATION, #30 TAB Prov: ERICKSON COLE MD 05/04/20 Hydrocodone/Apap 5-325 (NORCO 5-325 TABLET) 1 Each Tablet 1-2 EACH PO PRN Q6HRS PRN for PAIN, #12 as needed for pain Prov: ERICKSON COLE MD 05/04/20 ERICKSON COLE MD May 04, 2020 22:49
[2020-05-04] MEDS ORDERED: IBUP-1007 PO (23:53)
[2020-05-04] MEDS ORDERED: HYDR-3164 PO (23:53)
--- NOTE | 2020-05-05 00:55 | RAD ---
Study: CR SHOULDER 2+V LEFT Indication: Pain. Comparison: None. Findings: No acute fracture. Alignment is anatomic. No significant degenerative change. The visualized thoracic structures are unremarkable. Impression: No acute osseous abnormality. Electronically signed by: DIANA MANUEL MD (05/05/2020 12:52 AM) [id number]
== END 2020-05-05 00:19 | disposition home or self-care (01) ==
LOC: ER 21:52
DX: M25.512 Pain in left shoulder (principal); M71.9 Bursopathy, unspecified; R60.0 Localized edema; F41.9 Anxiety disorder, unspecified; F17.200 Nicotine dependence, unspecified, uncomplicated; F12.90 Cannabis use, unspecified, uncomplicated
CPT/HCPCS: 73030; 99283; A4565; 99281

== ENCOUNTER 2020-12-30 18:34 | Emergency (ER) | payer SELFPAY ==
[~2020-12-30] VITALS: Ht 182.9 cm; Wt 130.0 kg
[~2020-12-30 18:34] MED LIST changes: +IBUP-1007 PO
[2020-12-30 21:12] LABS: BASO # 0.1 x10^3/uL (0.0-0.2); BASO % 1 % (0-3); EOS # 0.2 x10^3/uL (0.0-0.7); EOS % 2 % (0-3); HEMATOCRIT 41.6 % (39.0-53.0); HEMOGLOBIN 14.4 g/dL (13.0-17.5); LYMPH # 2.5 x10^3/uL (1.0-4.8); LYMPH % 27 % (24-48); MEAN CORPUSCULAR HEMOGLOBIN 32 pg (25-35); MEAN CORPUSCULAR HGB CONC 35 g/dL (31-37); MEAN CORPUSCULAR VOLUME 92 fL (79-100); MONO # 0.8 x10^3/uL (0.0-1.1); MONO % 9 % (0-9); NEUT # 5.7 x10^3/uL (1.8-7.7); NEUT % 61 % (31-73); PLATELET COUNT 235 x10^3/uL (140-400); RED BLOOD COUNT 4.53 x10^6/uL (4.30-5.70); RED CELL DISTRIBUTION WIDTH 13.4 % (11.5-14.5); WHITE BLOOD COUNT 9.2 x10^3/uL (4.0-11.0)
[2020-12-30 21:21] LABS: CALCIUM 8.5 mg/dL (8.5-10.1); CREATININE 1.1 mg/dL (0.7-1.3); GFR 93.9; POTASSIUM 4.1 mmol/L (3.5-5.1)
[2020-12-30 21:26] LABS: CREATINE KINASE 270 U/L (39-308); LACTATE DEHYDROGENASE 135 U/L (85-227)
[2020-12-30 21:27] LABS: ALBUMIN 3.3 g/dL (3.4-5.0); ALBUMIN/GLOBULIN RATIO 1.1 (1.0-1.7); TOTAL BILIRUBIN 0.3 mg/dL (0.2-1.0); TOTAL PROTEIN 6.2 g/dL (6.4-8.2)
[2020-12-30 22:27] LABS: BILIRUBIN,URINE NEGATIVE (NEG); CLARITY,URINE CLEAR; COLOR,URINE YELLOW; NITRITE,URINE NEGATIVE (NEG); PROTEIN,URINE NEGATIVE (NEG-TRACE)
[2020-12-30 22:34] LABS: BACTERIA,URINE 0 /HPF (0-FEW); RBC,URINE 0 /HPF (0-2); WBC,URINE 0 /HPF (0-4)
[2020-12-30] MEDS ORDERED: DEXAMETHASONE SOD PHOS 4 MG/ML VIAL IVP ONE (23:00)
[2020-12-30 23:14] VITALS: BP 129/87
[2020-12-30] MEDS ORDERED: PRED50TA PO (23:19)
[2020-12-30] MEDS ORDERED: AZIT250T PO (23:19)
--- NOTE | 2020-12-30 23:19 | ED.ADGEN ---
Past Medical History Past Medical History: Anxiety Past Surgical History: No Surgical History Smoking Status: Current Every Day Smoker Alcohol Use: Occasionally Drug Use: Marijuana General Adult EDM: Chief Complaint: HEADACHE HPI: HPI: Patient is a 30 year old [f__sex] who presents with [] Review of Systems: Review of Systems: Constitutional: Denies fever or chills. [] Eyes: Denies change in visual acuity. [] HENT: Denies nasal congestion or sore throat. [] Respiratory: Denies cough or shortness of breath. [] Cardiovascular: Denies chest pain or edema. [] GI: Denies abdominal pain, nausea, vomiting, bloody stools or diarrhea. [] : Denies dysuria. [] Musculoskeletal: Denies back pain or joint pain. [] Integument: Denies rash. [] Neurologic: Denies headache, focal weakness or sensory changes. [] Endocrine: Denies polyuria or polydipsia. [] Lymphatic: Denies swollen glands. [] Psychiatric: Denies depression or anxiety. [] Current Medications: Current Medications Medications (Trade) Dose Ordered Sig/Noel Start Time Stop Time Status Last Admin Dose Admin Dexamethasone Sodium Phosphate (Decadron) 10 mg 1X ONCE 12/30/20 23:00 12/30/20 23:01 DC 12/30/20 22:48 10 MG Allergies: Allergies: Allergies Coded Allergies Type Severity Reaction Last Updated Verified No Known Drug Allergies 10/28/16 No Physical Exam: PE: Constitutional: Well developed, well nourished, no acute distress, non-toxic appearance. [] HENT: Normocephalic, atraumatic, bilateral external ears normal, oropharynx moist, no oral exudates, nose normal. [] Eyes: PERRLA, EOMI, conjunctiva normal, no discharge. [] Neck: Normal range of motion, no tenderness, supple, no stridor. [] Cardiovascular:Heart rate regular rhythm, no murmur [] Lungs & Thorax: Bilateral breath sounds clear to auscultation [] Abdomen: Bowel sounds normal, soft, no tenderness, no masses, no pulsatile mas ses. [] Skin: Warm, dry, no erythema, no rash. [] Back: No tenderness, no CVA tenderness. [] Extremities: No tenderness, no cyanosis, no clubbing, ROM intact, no edema. [] Neurologic: Alert and oriented X 3, normal motor function, normal sensory function, no focal deficits noted. [] Psychologic: Affect normal, judgement normal, mood normal. [] Current Patient Data: Labs: Laboratory Tests Test 12/30/20 21:00 White Blood Count 9.2 x10^3/uL (4.0-11.0) Red Blood Count 4.53 x10^6/uL (4.30-5.70) Hemoglobin 14.4 g/dL (13.0-17.5) Hematocrit 41.6 % (39.0-53.0) Mean Corpuscular Volume 92 fL (79-100) Mean Corpuscular Hemoglobin 32 pg (25-35) Mean Corpuscular Hemoglobin Concent 35 g/dL (31-37) Red Cell Distribution Width 13.4 % (11.5-14.5) Platelet Count 235 x10^3/uL (140-400) Neutrophils (%) (Auto) 61 % (31-73) Lymphocytes (%) (Auto) 27 % (24-48) Monocytes (%) (Auto) 9 % (0-9) Eosinophils (%) (Auto) 2 % (0-3) Basophils (%) (Auto) 1 % (0-3) Neutrophils # (Auto) 5.7 x10^3/uL (1.8-7.7) Lymphocytes # (Auto) 2.5 x10^3/uL (1.0-4.8) Monocytes # (Auto) 0.8 x10^3/uL (0.0-1.1) Eosinophils # (Auto) 0.2 x10^3/uL (0.0-0.7) Basophils # (Auto) 0.1 x10^3/uL (0.0-0.2) Urine Collection Type Unknown Urine Color Yellow Urine Clarity Clear Urine pH 6.0 (<5.0-8.0) Urine Specific [place] 1.020 (1.000-1.030) Urine Protein Negative mg/dL (NEG-TRACE) Urine Glucose (UA) Negative mg/dL (NEG) Urine Ketones (Stick) Negative mg/dL (NEG) Urine Blood Negative (NEG) Urine Nitrite Negative (NEG) Urine Bilirubin Negative (NEG) Urine Urobilinogen Dipstick 1.0 mg/dL (0.2 mg/dL) Urine Leukocyte Esterase Negative (NEG) Urine RBC 0 /HPF (0-2) Urine WBC 0 /HPF (0-4) Urine Squamous Epithelial Cells None /LPF Urine Bacteria 0 /HPF (0-FEW) Urine Mucus Slight /LPF Sodium Level 145 mmol/L (136-145) Potassium Level 4.1 mmol/L (3.5-5.1) Chloride Level 108 mmol/L (98-107) H Carbon Dioxide Level 26 mmol/L (21-32) Anion Gap 11 (6-14) Blood Urea Nitrogen 7 mg/dL (8-26) L Creatinine 1.1 mg/dL (0.7-1.3) Estimated GFR (Cockcroft-Gault) 93.9 BUN/Creatinine Ratio 6 (6-20) Glucose Level 91 mg/dL (70-99) Calcium Level 8.5 mg/dL (8.5-10.1) Total Bilirubin 0.3 mg/dL (0.2-1.0) Aspartate Amino Transferase (AST) 18 U/L (15-37) Alanine Aminotransferase (ALT) 43 U/L (16-63) Alkaline Phosphatase 93 U/L (46-116) Lactate Dehydrogenase 135 U/L (85-227) Creatine Kinase 270 U/L (39-308) Total Protein 6.2 g/dL (6.4-8.2) L Albumin 3.3 g/dL (3.4-5.0) L Albumin/Globulin Ratio 1.1 (1.0-1.7) SARS-CoV-2 Antigen (Rapid) Negative (NEGATIVE) Laboratory Tests 12/30/20 21:00 Laboratory Tests 12/30/20 21:00 Vital Signs: Vital Signs Date Time Temp Pulse Resp B/P (MAP) Pulse Ox O2 Delivery O2 Flow Rate FiO2 12/30/20 19:10 98.5 82 12 138/82 (96) 99 Room Air 98.5 EKG: EKG: [] Heart Score: C/O Chest Pain: N/A Risk Factors: Risk Factors: DM, Current or recent (<one month) smoker, HTN, HLP, family history of CAD, obesity. Risk Scores: Score 0 - 3: 2.5% MACE over next 6 weeks - Discharge Home Score 4 - 6: 20.3% MACE over next 6 weeks - Admit for Clinical Observation Score 7 - 10: 72.7% MACE over next 6 weeks - Early Invasive Strategies Radiology/Procedures: Radiology/Procedures: [] Course & Med Decision Making: Course & Med Decision Making Pertinent Labs and Imaging studies reviewed. (See chart for details) [] Esperanza Disclaimer: Esperanza Disclaimer: This electronic medical record was generated, in whole or in part, using a voice recognition dictation system. Departure Departure Impression: Primary Impression: Suspected 2019-nCoV infection Disposition: HOME / SELF CARE / HOMELESS Condition: STABLE Referrals: NO PCP (PCP) Additional Instructions: Thank you for visiting [facility]. We appreciate you trusting us with your care. If any additional problems come up please don't hesitate to return to visit us. Follow up with your primary care provider so they can plan additional care if needed and know about the problem that you had today. If symptoms worsen come back to the Emergency Department. Any concerning symptoms that start such as chest pain, shortness of air, weakness or numbness on one side of the body, running high fevers or any other concerning symptoms return to the ER. You have a viral syndrome which may include symptoms like muscle aches, fevers, chills, runny nose, cough, sneezing, sore throat, nausea, vomiting, or diarrhea. One of the potential viruses that you may have is SARS-CoV-2, the virus that causes COVID-19, also known as the Coronavirus. You are just as likely to have a different viral infection such as the common cold, flu, etc. Most patients with the Coronavirus have mild symptoms and recover on their own. Resting, staying hydrated, and sleep based on known cases can be helpful. As of todays visit, you are well enough to go home and treat your symptoms with oral fluids and over the counter medications. Coronavirus testing is not performed on most people with mild symptoms who are being discharged from the emergency department. If Coronavirus testing was performed today the results will not be available for possibly up to 3-4 days. If your result is positive you will be contacted. Please follow the following precautions at home: 1. Stay home except to get medical care. 2. As advised by the CDC, we recommend that you stay in your home and minimize contact with other people. We do not want you to spread the infection. 3. Those who are older or have significant medical issues may have more severe symptoms from this infection. We recommend self-isolation FOR AT LEAST 7 DAYS after your 1st day of symptoms. AFTER you feel better please wait AT LEAST ANOTHER WEEK before returning to regular activities and being around other people. 4. IF you become sicker and have difficulty breathing, chest pain, are unable to eat/drink, severe vomiting, diarrhea, or weakness you may need to return to the Emergency Department. 5. You should restrict activities outside of your home, except for getting medical care. DO NOT go to work, school, or public areas. Avoid using public transportation, ride sharing, or taxis. 6. Separate yourself from other people in your home. You should use a separate bathroom if possible. 7. Avoid sharing personal household items such as dishes, cups, eating utensils, towels, etc. 8. Clean all high touch surfaces every day (door knobs, counter tops, etc). Use a household cleaning spray or wipe per label instructions. 9. Clean your hands often. Wash your hands with soap and water for at least 20 seconds. 10. Cover your mouth and nose when you cough or sneeze. 11. Throw used tissues in the trash and immediately wash your hands. For additional resources please visit the CDC website or the [facility] ([phone]), you may also call 211 for further information. Scripts Azithromycin (ZITHROMAX) 250 Mg Tablet 1 PKG PO UD, #6 TAB Prov: TON REDDY MD 12/30/20 Prednisone (PREDNISONE) 50 Mg Tablet 1 TAB PO DAILY, #5 TAB Prov: TON REDDY MD 12/30/20 TON REDDY MD Dec 30, 2020 23:19
--- NOTE | 2020-12-30 23:55 | RAD ---
Exam: Chest one view INDICATION: Cough TECHNIQUE: Frontal view of the chest Comparisons: 02/24/2016 FINDINGS: The cardiomediastinal silhouette and pulmonary vessels are within normal limits. Strandy left basilar airspace disease. No pleural effusion IMPRESSION: Left basilar airspace disease may relate to atelectasis. Developing infectious process is difficult t o exclude. Electronically signed by: Lucia Garrett MD (12/30/2020 11:53 PM) MELVIN
--- NOTE | 2021-01-01 15:37 | NUR ---
IP: Attempted to contact pt concerning covid results. No answer, no voicemail.
== END 2020-12-30 23:40 | disposition home or self-care (01) ==
LOC: ER 18:34
DX: R51.9 Headache, unspecified (principal); Z20.822 Contact with and (suspected) exposure to COVID-19; F17.200 Nicotine dependence, unspecified, uncomplicated
CPT/HCPCS: 36415; 71045; 80053; 81001; 82550; 83615; 85025; 87426; 96374; 99285; J1100; U0003; U0005